=== PATIENT | male | born 1995 | race Caucasian/White ===

== ENCOUNTER 2020-11-01 09:55 | Outpatient (REF) | payer OTHER, SELFPAY ==
--- NOTE | ~2020-11-01 | XR_ITS ---
EXAMINATION: XR LUMBOSACRAL SPINE CLINICAL INFORMATION: Low back pain. COMPARISON: None TECHNIQUE: Three views of the lumbosacral spine. FINDINGS: There are 5 [id number] lumbar vertebra. There is no evidence of acute fracture, spondylolisthesis, or spondylolysis. Joint spaces maintained. Pedicles intact. There is bilateral sacroiliac joint sclerosis, left greater than right. XR/XR lumbar spine 2-3V IMPRESSION: 1. No significant lumbar spine abnormality appreciated. 2. Sclerosis with some spurring of the sacroiliac joints bilaterally. No evidence of widening or fusion of the sacroiliac joints.
== END 2020-11-01 09:56 | disposition home or self-care (01) ==
LOC: HO.HMGCX 09:55
PROVIDERS: PCP Nurse Practitioner Family; Visit Provider Nurse Practitioner Family
DX: M54.5 Low back pain (principal)
CPT/HCPCS: 72100

== ENCOUNTER 2021-03-18 14:00 | Outpatient (RCR) | payer OTHER, SELFPAY ==
--- NOTE | 2021-01-28 15:24 | MHC.PT.EP ---
[facility] [place] Office [place] Office [place] Office [address] [place] [address] [phone] F: [phone] F: [phone] F: [phone] F: [phone] Physical Therapy Plan of Care Date of Evaluation: Date of Surgery: NA Diagnosis: LBP RADIATING TO BOTH LEGS Assessment: Pt IS 25 YO M REFERRED TO PT FROM [facility] RADIATION CONTROL SPECIALIST WITH LBP RADIATING TO BOTH LEGS. Pt REPORTS SXS AT THIS TIME IN LB AND R GLUT>LE. PRESENTS WITH SXS OF SCIATICA WITH SIGNIFICANTLY TIGHT HS AND HIP EXTERNAL ROTATORS. Pt REPORTS HAS A 6 1/2 MONTH OLD BABY. XRAY SHOWS SOME ARTHRITIC CHANGES AT SI JT. ?LLD IN SUP. MMT NORMAL IN LES WITH ABILITY TO USE ABD MMS FOR SUP>SIT. Pt REPORTS HAS BEEN GOING TO CHIROPRACTER WITH SOME RELIEF. Pt ED RE BEING PARTICULARLY MINDFUL OF SXS TO TRY TO ASSESS CHIROPRACTIC VS PT INTERVENTION. SHOULD BENEFIT FROM PT TO HELP STRETCH HIP MMS, STRENGTHEN CORE AND MONITOR PELVIS SYMMETRY. Frequency and Duration: The patient will be seen 2X/WK X 4 WEEKS Short Term Goals: 1. INCREASED AWARENESS POSTURE AND BACK CARE 2. Pt TO DEMONSTRATE 2-3 TASKS WITH PROPER BODY MECH 3. 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 I HEP WITH DC EX PLAN 2. DECREASED LBP AT LEAST 50% WITH ADLS 3. INCREASED HS FLEX AT LEAST 5 DEGREES Treatment Plan: Modalities to reduce pain, spasms and effusion. Manual therapy to restore motion and function. Therapeutic exercise to improve strength and flexibility. Neuromuscular re-education for posture and balance. Therapeutic activities to return to functional activities of daily living. Electronically signed by: ROSALINA GRAY PT Please sign and return to therapist. Thank you for your referral.
--- NOTE | 2021-04-22 14:21 | MHC.PT.DC ---
[facility] [place] Office [place] Office [place] Office [address] [phone] F: [phone] F: [phone] F: [phone] F: [phone] Physical Therapy Discharge Report Diagnosis: LBP RADIATING TO BOTH LEGS Date of Surgery: NA Date of Evaluation: 01/28/21 Date of Discharge: 03/18/21 Treatments to Date: 7 Cancellations to Date: No Shows to Date: Discharge Status: Improved Function Independent with HEP Patient Elected to Stop Recommend MD Follow-up Discharge Summary: STEROID AND MM RELAXER SEEM TO HAVE MADE A DIFFERENCE IN ASSISTING Pt'S ABILITY TO PERF STRETCHES AND STRENGTHENING EXS. CONTINUES WITH R LE WEAKNESS AND DECREASED FLEXIBILITY (? DISC PROBLEM VS OTHER NEURO INVOLVEMENT..Pt ED RE WATCHING OF SXS AND CONTACTING PCP IF NEEDED). Pt WAS TO BE SEEN FOR 1 WK FU BUT WASNT ABLE TO MAKE IT. HAS HEP Electronically signed by: ROSALINA GRAY PT Please sign and return to therapist. Thank you for your referral.
== END 2021-04-22 14:22 | disposition home or self-care (01) ==
LOC: HO.PTWFD 14:00
PROVIDERS: PCP Nurse Practitioner Family; Visit Provider Nurse Practitioner Family
DX: M54.50 Low back pain, unspecified (principal)
CPT/HCPCS: 97014; 97110; 97140; 97161; 97535

== ENCOUNTER 2021-05-19 07:17 | Outpatient (REF) | payer OTHER, SELFPAY ==
--- NOTE | ~2021-05-19 | MR_ITS ---
EXAMINATION: MR LUMBAR SPINE WITHOUT CONTRAST CLINICAL INFORMATION: Low back pain. COMPARISON: None TECHNIQUE: MRI of the lumbar spine was obtained using routine sequences without contrast. FINDINGS: The lumbar vertebral bodies maintain normal heights and alignment. There is disc height loss at L5-S1 with the remainder the disc heights well preserved. No bone marrow edema is seen. The distal spinal cord appears normal. The conus medullaris terminates normally at the upper L2 level. The extraspinal soft tissues appear normal. SPINAL LEVELS: L1-L2: No posterior disc abnormality. No spinal canal or neural foraminal stenosis. L2-L3: No posterior disc abnormality. No spinal canal or neural foraminal stenosis. L3-L4: No posterior disc abnormality. No spinal canal or neural foraminal stenosis. L4-L5: No posterior disc abnormality. No spinal canal or neural foraminal stenosis. L5-S1: Disc bulging with broad-based right subarticular protrusion. Complex disc extrusion with inferior migration centered in the right subarticular zone/recess is noted with herniated disc material extending down to the lower S1 level. The overall size of the disc herniation measures up to 2.3 cm in maximal craniocaudal dimension. There is significant distortion of the right aspect of the thecal sac with compression of the traversing right S1 nerve root which is difficult to separate from the disc herniation. Right neural foramen is mildly narrowed but without foraminal nerve root compression. No left-sided narrowing. MR/MR lumbar spine wo con IMPRESSION: At L5-S1 there is complex large disc extrusion with inferior migration centered in the right subarticular zone/recess with compression of the traversing S1 nerve root. No spinal canal stenosis. No significant abnormality at the remaining lumbar levels.
== END 2021-05-19 07:18 | disposition home or self-care (01) ==
LOC: HO.MRI 07:17
PROVIDERS: PCP Nurse Practitioner Family; Visit Provider Nurse Practitioner Family
DX: M54.50 Low back pain, unspecified (principal)
CPT/HCPCS: 72148

== ENCOUNTER → 2021-06-16 08:29 | Outpatient (BNV) | payer BC, OTHER, SELFPAY | PROVIDERS: PCP Nurse Practitioner Family; Visit Provider Internal Medicine | DX: E83.110 Hereditary hemochromatosis (principal) | CPT/HCPCS: 99213; 99214 ==

== ENCOUNTER 2023-07-06 11:07 | Outpatient (AMB) | payer BC, SELFPAY ==
[2023-07-06 11:13] VITALS: BP 128/76; PULSE 86; O2SAT 98; BMI 29.0
--- NOTE | 2023-07-06 11:13 | A.OFFPC_ITS ---
Vital Signs 07/06/23 11:13 Height 5 ft 7 in Weight 185 lb 6 oz BMI 29.0 BP 128/76 Blood Pressure Location Rt brachial Position Sitting Pulse 86 Pulse Source Pulse Oximeter Pulse Oximetry (%) 98 Oxygen Delivery Method Room Air Intake Visit Reasons: phy Intake Note: Pt is here for his Annual PE Allergies No Known Allergies Allergy (Verified 07/06/23 12:06) Environmental Allergy (Unknown, Uncoded 07/06/23 12:06) Unknown Medication List - Last Reconciled 07/06/23 by ISABELLA Karimi No Known Home Meds Tobacco use date assessed: 07/06/23 Dental Screening Dental Screen Date: 07/06/23 Did you have a dental visit in the last 12 months?: Yes Did you have a dental problem in the last 6 months where you did not have access to dental care?: No Was dental information given to patient?: Patient has dentist HPI phy HPI Details Pt is here for a PE. Will order labs. Pt reports urinary frequency. Will assess CMP. Pt reports intermittent palpitations. He reports feeling anxious when these occur. Pt will let me know if these continue. [facility] Medical History (Updated 07/06/23 @ 11:26 by ISABELLA Karimi) Eczema Elevated hemoglobin Iron overload Hereditary hemochromatosis Surgical History History of surgery on right wrist Family History Father HTN (hypertension) Mother Bipolar disorder OCD (obsessive compulsive disorder) HHT (hereditary hemorrhagic telangiectasia) Maternal Grandfather HHT (hereditary hemorrhagic telangiectasia) Maternal Aunt HHT (hereditary hemorrhagic telangiectasia) Other Mental health disorder Substance use disorder Social History Household Members: Spouse and Children Housing: House Alcohol intake: current Alcohol intake frequency: a few times a week Patient Tobacco Use Status: Never used Tobacco e-Cigarette/Vaping Use: Currently Using Second Hand Smoke Exposure: Yes service: No Current occupational status: unemployed 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 90022 - PHQ-9 Billing: Patient declined-do not bill Source: Developed by Drs. Bo Brady, Gillian Shah, Angel Murray and colleagues, with an educational inna from [employer]. Thrive Questionnaire Date Thrive assessed: 07/06/23 I am a: Patient What is your living situation today?: I have a steady place to live Within the past 12 months, did the food you bought not last and you didn't have the money to get more?: Never true Within the past 12 months, did you worry whether your food would run out before you got money to buy more?: Never true Do you have trouble paying for medicines?: No Do you have trouble getting transportation to medical appointments?: No Do you have trouble paying your heating and electricity bill?: No Do you have trouble taking care of your child, family member or friend?: No Do you have trouble with day-to-day activities such as bathing, preparing meals, shopping, managing finances, etc.?: No Are you currently unemployed and looking for a job?: No Are you interested in more education?: No Currently or been in a relationship where the following occur: no concerns reported THRIVE Score: 0 AUDIT C Alcohol Use Questionnaire (AUDIT-C) 1. How often do you have a drink containing alcohol?: 2-3 times a week 2. How many drinks containing alcohol do you have on a typical day when you are drinking?: 3 or 4 3. How often do you have six or more drinks on one occasion?: Less than monthly Total Score: 5 Score Reviewed/Action Taken: Yes JUDITH-7 AMB Questionnaire JUDITH-7 Date JUDITH - 7 assessed: 07/06/23 Feeling nervous, anxious, or on edge: 0 = Not at all Not being able to stop or control worryin = Several days Worrying too much about different things: 1 = Several days Trouble relaxin = Several days Being so restless that it is hard to sit still: 1 = Several days Becoming easily annoyed or irritable: 1 = Several days Feeling afraid as if something awful might happen: 0 = Not at all Total JUDITH-7 score (0-4 normal; 5-9 mild; 10-14 moderate; 15-21 severe): 5 Source: Developed by Drs. Bo Brady, Gillian Shah, Angel Murray and colleagues, with an educational inna from [employer]. JUDITH-7 Assessment Billing JUDITH-7 Assessment Tool: JUDITH-7 Assessment 84619 Review of Systems Const Denies chills and Denies fever(s) Eyes Denies blurry vision ENT Denies vertigo, Denies dizziness and Denies sore throat Card Denies chest pain at rest, Denies chest pain with activity, Denies diaphoresis, Denies dyspnea and Denies dyspnea on exertion Resp Denies cough, Denies dyspnea, Denies dyspnea on exertion and Denies wheezing GI Denies abdominal pain, Denies melena, Denies hematochezia, Denies constipation, Denies diarrhea and Denies loose stools Denies hematuria and Reports urinary frequency Musc Denies numbness and Denies tingling Skin/Breast Denies lesions Neuro Denies vertigo, Denies dizziness, Denies numbness and Denies tingling Psych Denies anxiety, Denies depression, Denies homicidal ideation, Denies suicidal ideation and Denies other (substance abuse) Aller/Immun Denies wheezing Physical exam (Primary Care) Vital Signs: Last Vital Signs Pulse 86 07/06/23 11:13 BP 128/76 07/06/23 11:13 Pulse Ox 98 07/06/23 11:13 Oxygen Delivery Method Room Air 07/06/23 11:13 BMI result Body Mass Index 29.0 Tobacco/Smoking Status: Tobacco use Status Tobacco use date assessed 07/06/23 07/06/23 11:20 Patient Tobacco Use Status Never used Tobacco 07/06/23 11:13 e-Cigarette/Vaping Use Currently Using 07/06/23 11:20 Thrive Assessment: Date of Thrive Assessment Date Thrive assessed 10/30/20 07/06/23 11:13 Currently or been in a relationship where the following occur: no concerns reported Const General: cooperative Nutritional Appearance: well nourished Orientation/consciousness: patient oriented x3 HENMT Head: Yes normal to inspection, Yes normocephalic and Yes atraumatic Ears: TM's normal bilaterally Eyes General: appearance normal, both eyes and all related structures Alignment and Position: alignment normal and position normal Neck Neck: Yes normal visual inspection and Yes no lymphadenopathy Thyroid: Thyroid normal Resp Effort & Inspection: normal respiratory effort Auscultation: clear to auscultation bilaterally Cardio Rate: regular rate Rhythm: regular rhythm Heart sounds: S1 normal heart sound present, S2 normal heart sound present and no murmurs GI Palpation (GI): Soft to palpation and nontender Auscultation: normal bowel sounds Male General Exam: Yes normal external exam Penis: normal penis Scrotum: scrotum normal, testes descended bilaterally and no inguinal hernias Testes: no testicular mass Skin Rashes: no rashes Neuro General: patient oriented x3, moves all extremities, no focal motor deficits and deep tendon reflexes 2+ bilaterally Romberg Test: Negative Psych Appearance: grossly normal Mental Status: mental status grossly normal Speech and movement: Normal speech and movement present Affect: normal affect Attitude: cooperative Thought process: Normal thought process present Thought content: Normal thought content present Insight: Good insight present (Psych) Judgement: Good judgement present (Psych) Assessment and Plan Assessment & Plan (1) Physical exam: Code(s): Z. - Encounter for general adult medical examination without abnormal findings Plan: Labs ordered (2) Hereditary hemochromatosis: Code(s): E83.110 - Hereditary hemochromatosis Plan: iron and ferritin ordered Plan The patient agreed to the use of a ophthalmic medical technologist for this encounter. Scribed for ISABELLA Gil by Lissa Nichols ophthalmic medical technologist, on 07/06/2023 at 11:25 EST. Orders: Orders Complete Blood Count Auto Diff 11 Months . - Encounter for general adult medical examination without abnormal findings Comprehensive [place]. Panel Fast 11 Months . - Encounter for general adult medical examination without abnormal findings UA CC w/rflx Micro + Cult 11 Months . - Encounter for general adult medical examination without abnormal findings Lipid Panel 11 Months . - Encounter for general adult medical examination without abnormal findings Complete Blood Count Auto Diff Today . - Encounter for general adult medical examination without abnormal findings Comprehensive [place]. Panel Fast Today . - Encounter for general adult medical examination without abnormal findings TSH reflex Free T4 Today . - Encounter for general adult medical examination without abnormal findings UA CC w/rflx Micro + Cult Today . - Encounter for general adult medical examination without abnormal findings Lipid Panel Today Z. - Encounter for general adult medical examination without abnormal findings TSH reflex Free T4 11 Months Z00.00 - Encounter for general adult medical examination without abnormal findings Ferritin Today E83.110 - Hereditary hemochromatosis IRON PROFILE Today E83.110 - Hereditary hemochromatosis Coding Level of Care Code Est Pt Prev Care 18-39y(47044) Diagnoses Physical exam Z00.00 Hereditary hemochromatosis E83.110 Additional Codes JUDITH-7 Assessment Billing - JUDITH-7 Assessment Tool: JUDITH-7 Assessment [id number] ([id number])
== END 2023-07-06 11:41 | disposition home or self-care (01) ==
PROVIDERS: PCP Nurse Practitioner Family; Visit Provider Nurse Practitioner Family
DX: Z00.00 Encounter for general adult medical examination without abnormal findings (principal); E83.110 Hereditary hemochromatosis
CPT/HCPCS: 99395

== ENCOUNTER 2023-08-20 11:05 | Outpatient (REF) | payer BC, SELFPAY ==
[2023-08-20 13:32] LABS: MANUAL DIFF FLAG NO
[2023-08-20 13:34] LABS: Basophils Percent Auto 0.4 % (0-2); Eosinophils Absolute Auto 0.5 X10*3/uL (0.0-0.4); Eosinophils Percent Auto 6.4 % (0-4); Hematocrit 47.9 % (42.0-52.0); Hemoglobin 16.6 g/dl (14.0-18.0); Imm Gran Abs Auto 0.03 X10*3/uL (0.00-0.03); Imm Gran Pct Auto 0.4 % (0.0-0.4); Lymphocytes Absolute Auto 2.6 X10*3/uL (1.2-4.9); Lymphocytes Percent Auto 33.6 % (20-40); Mean Corpuscular HGB Conc 34.7 g/dl (31.0-36.0); Mean Corpuscular Hemoglobin 30.4 pg (27.0-33.0); Mean Corpuscular Volume 87.7 fL (80.0-98.0); Mean Platelet Volume 11.1 fL (9.4-12.4); Monocytes Absolute Auto 0.6 X10*3/uL (0.1-1.2); Monocytes Percent Auto 7.4 % (2-11); Neutrophils Percent Auto 51.8 % (45-73); Platelet Count 301 X10*3/uL (160-400); Red Blood Count 5.46 X10*6/uL (4.60-5.80); Red Cell Distribution Width 12.7 % (11.0-16.0); White Blood Count 7.7 X10*3/uL (4.8-10.8)
[2023-08-20 13:55] LABS: Alanine Aminotransferase 98 U/L (0-40); Albumin Level 4.7 g/dL (3.5-5.0); Alkaline Phosphatase 58 U/L (39-117); Anion Gap 12 (12-20); Aspartate Amino Transferase 43 U/L (5-37); Bilirubin Total 0.8 mg/dL (0.0-1.0); Blood Urea Nitrogen 12 mg/dL (9-16); Calcium 9.7 mg/dL (8.4-10.2); Carbon Dioxide 27 mmol/L (22-29); Chloride 104 mmol/L (96-108); Cholesterol 163 mg/dL (<200); Estimated Glomerular Filt Rate > 60; Glucose Fasting 84 mg/dL (60-99); HDL Cholesterol 53 mg/dL (>40); Iron 140 mcg/dL (45-160); LDL Cholesterol Calculated 91 mg/dL (<100); Percent Iron Saturation 47 % (15-50); Potassium 3.8 mmol/L (3.3-5.1); Sodium 139 mmol/L (135-145); Total Iron Binding Capacity 299 mcg/dL (228-428); Total Protein 7.4 g/dL (6.5-8.0); Triglycerides 98 mg/dL (<150); Unsaturated Iron Binding 159 ug/dL
[2023-08-20 14:13] LABS: Ferritin 337 ng/mL (20-250); TSH reflex Free T4 1.53 uIU/mL (0.32-4.0)
== END 2023-08-20 11:06 | disposition home or self-care (01) ==
LOC: HO.HMGCLDS 11:05
PROVIDERS: PCP Nurse Practitioner Family; Visit Provider Nurse Practitioner Family
DX: Z00.00 Encounter for general adult medical examination without abnormal findings (principal); Z13.6 Encounter for screening for cardiovascular disorders; E83.110 Hereditary hemochromatosis
CPT/HCPCS: 36415; 80053; 80061; 82728; 83540; 84443; 85025

== ENCOUNTER 2023-08-26 08:36 | Outpatient (REF) | payer BC, SELFPAY ==
--- NOTE | ~2023-08-26 | US_ITS ---
EXAMINATION: US ABDOMEN COMPLETE CLINICAL INFORMATION: Abnormal levels of other serum enzymes. COMPARISON: Ultrasound abdomen 09/01/2016. TECHNIQUE: Real-time imaging of the abdominal viscera. Limited visualization due to bowel gas and body habitus. FINDINGS: PANCREAS: Limited visualization of pancreatic tail and head. Imaged portion of pancreatic body is unremarkable. ABDOMINAL AORTA: Limited visualization. INFERIOR VENA CAVA: Visualized portions are normal. LIVER: Increased hepatic parenchymal heterogeneity and echogenicity could be associated with hepatocellular disease/hepatic steatosis and severely limits visualization. Correlation with liver function tests and clinical exam recommended to determine further management. GALLBLADDER: No gallstones. No gallbladder wall thickening. COMMON BILE DUCT: Normal in caliber measuring 0.3 cm in diameter. RIGHT KIDNEY: No hydronephrosis. No renal calculi. Limited visualization. The kidney measures 9.7 cm in maximum dimension. LEFT KIDNEY: No hydronephrosis. No renal calculi. Limited visualization. The kidney measures 10.3 cm in maximum dimension. SPLEEN: Normal. The spleen measures 11.9 cm in maximum dimension. FREE FLUID: None. US/US abdomen complete IMPRESSION: Increased hepatic parenchymal heterogeneity and echogenicity could be associated with hepatocellular disease/hepatic steatosis and severely limits visualization. Correlation with liver function tests and clinical exam recommended to determine further management....
== END 2023-08-26 08:37 | disposition home or self-care (01) ==
LOC: HO.HMGCX 08:36
PROVIDERS: PCP Nurse Practitioner Family; Visit Provider Nurse Practitioner Family
DX: R74.8 Abnormal levels of other serum enzymes (principal)
CPT/HCPCS: 76700

== ENCOUNTER 2023-10-18 12:44 | Outpatient (REF) | payer BC, SELFPAY | END 2023-10-18 12:45 | disposition home or self-care (01) | LOC: HO.BBR 12:44 | PROVIDERS: PCP Nurse Practitioner Family; Visit Provider Internal Medicine | DX: Z13.89 Encounter for screening for other disorder (principal) ==

== ENCOUNTER 2023-11-22 12:36 | Outpatient (REF) | payer BC, SELFPAY | END 2023-11-22 12:37 | disposition home or self-care (01) | LOC: HO.BBR 12:36 | PROVIDERS: PCP Nurse Practitioner Family; Visit Provider Internal Medicine | DX: Z13.89 Encounter for screening for other disorder (principal) ==

== ENCOUNTER 2024-02-10 13:04 | Outpatient (REF) | payer BC, SELFPAY | END 2024-02-10 13:05 | disposition home or self-care (01) | LOC: HO.BBR 13:04 | PROVIDERS: PCP Nurse Practitioner Family; Visit Provider Internal Medicine | DX: Z13.89 Encounter for screening for other disorder (principal) ==

== ENCOUNTER 2024-03-13 14:06 | Outpatient (REF) | payer BC, SELFPAY | END 2024-03-13 14:07 | disposition home or self-care (01) | LOC: HO.BBR 14:06 | PROVIDERS: PCP Nurse Practitioner Family; Visit Provider Internal Medicine | DX: Z13.89 Encounter for screening for other disorder (principal) ==

== ENCOUNTER → 2024-05-31 16:03 | Outpatient (BNVA) | payer BC, SELFPAY | PROVIDERS: PCP Nurse Practitioner Family; Visit Provider Nurse Practitioner Family | DX: Z23 Encounter for immunization (principal) | CPT/HCPCS: 90471; 90715 ==

== ENCOUNTER 2024-05-31 16:14 | Outpatient (AMB) | payer BC, SELFPAY ==
--- NOTE | 2024-05-31 16:11 | AM.OFFVISNUR ---
Intake Visit Reasons: Tdap Allergies No Known Allergies Allergy (Verified 03/21/24 15:17) Environmental Allergy (Mild, Uncoded 03/21/24 15:17) Cough Immunizations Boostrix Tdap 2.5 Lf unit-8 mcg-5 Lf/0.5 mL intramuscular syringe Performing Provider: ISABELLA Karimi Performing Location: [facility] Administered by: ROSALIA Bell on 05/31/24 16:16 Dose Route Admin Location Dispensed Lot Number Expiration Date ND Frame Aligner 0.5 mL IM Left Deltoid 0.5 mL [id number] 05/30/26 [id number] Node1 VIS Given Date VIS Provided VIS Publication Date 05/31/24 Single Vaccine 20 Eligibility Eligibility Date Funding Source Not [facility] Eligible 05/31/24 Private Assessment & Plan Assessment & Plan Orders: Orders TDaP Immunization Today Z23 - Encounter for immunization Medications: New Boostrix Tdap (diphth,pertus(acell),tetanus) 0.5 mL IM ONCE 0.5 mL 0RF NS Z23 - Encounter for immunization
== END 2024-05-31 16:18 | disposition home or self-care (01) ==
PROVIDERS: PCP Nurse Practitioner Family; Visit Provider Nurse Practitioner Family
DX: Z23 Encounter for immunization (principal)

== ENCOUNTER 2024-07-25 11:00 | Outpatient (AMB) | payer BC, SELFPAY ==
[2024-07-25 11:07] VITALS: BP 120/80; PULSE 90; TEMP 36.6; O2SAT 96; BMI 29.3
--- NOTE | 2024-07-25 11:07 | A.OFFPC_ITS ---
Vital Signs 07/25/24 11:07 Height 5 ft 7 in Weight 187 lb 2 oz BMI 29.3 BP 120/80 Blood Pressure Location Lt brachial Position Sitting Pulse 90 Pulse Source Pulse Oximeter Temp 97.8 F Temp Source Oral Pulse Oximetry (%) 96 Intake Visit Reasons: ANNUAL PE Intake Note: pt is here for annual exam Bottle Tester Required: No Accompanied by: Self / Same As Patient Allergies No Known Allergies Allergy (Verified 07/25/24 11:42) Environmental Allergy (Mild, Uncoded 07/25/24 11:42) Cough Medication List - Last Reconciled 07/25/24 by HOME Karimi No Known Home Meds Tobacco use date assessed: 07/25/24 Dental Screening Dental Screen Date: 07/25/24 Did you have a dental visit in the last 12 months?: Yes Did you have a dental problem in the last 6 months where you did not have access to dental care?: No Was dental information given to patient?: Patient has dentist HPI ANNUAL PE HPI Details History of Present Illness The patient is a 28-year-old male presenting for a physical exam with a reported complaint of urinary frequency. He describes this as an increase in the need to urinate, but he can fully empty his bladder each time. This condition is presumed by the patient to be linked to his high fluid intake. Importantly, he denies any nocturia, excessive dribbling post-urination, or any decrease in stream strength. educated on limiting caffeine intake. The patient also denies any gastrointestinal symptoms such as abdominal pain, altered bowel movements, or hematochezia and has no respiratory or cardiovascular complaints. Hx of , follows up with hematology Health Maintenance - Fasting labs recommended for future as sessment Social History Review of Systems - Genitourinary: Reports urinary frequen cy; Denies post-void dribbling or weak stream - Gastrointestinal: Denies abdominal juancarlos n, blood in stool, constipation, diarrhea - Cardiovascular: Denies chest pain - Respiratory: Denies shortness of breat h - Psychological: Denies anxiety, depress ion, suicidal ideation, homicidal ideation Physical Exam General: Cooperative, healthy appearing, comfortable, no acute distress and well developed Orientation: Patient oriented x3 Limitations: No limitations Head: Normal to inspection Ears: Hearing grossly normal bilaterally Nose: Normal external nose present Face and sinus: Normal facial exam Eyes: Appearance normal, both eyes and all related structures Neck: Normal visual inspection and Yes full ROM Respiratory: Normal respiratory effort and able to speak in complete sentences. Clear to auscultation bilaterally Cardiovascular: Regular rate and rhythm. Normal S1 and S2 GI: Normal to inspection. Soft to palpation and nontender Skin: No rashes or lesions noted Neuro: Patient oriented x3 Extremities: Normal to inspection Results Plan The plan for urinary frequency involves advising the patient to track his fluid intake and assessing any related changes in urinary habits. Future fasting labs are recommended to rule out underlying metabolic or renal contributors. As the symptom is associated with high fluid intake, no immediate intervention is required at this time. Discussion Notes I explained to the patient that the urinary frequency he is experiencing could be attributed to his high fluid intake. We discussed the importance of monitoring his symptoms and the potential necessity for fasting labs in the future to confirm any underlying issues. The risks and benefits of testing were covered, and the patient was advised to return if symptoms worsen or new concerns arise. Patient Instructions - Monitor fluid intake and note any tanner ges in urinary frequency. - Plan to have fasting labs done in the future for further evaluation. - Seek medical attention if symptoms per sist or worsen, or if additional symptoms develop. [facility] Medical History Eczema Elevated hemoglobin Iron overload Hereditary hemochromatosis Surgical History History of surgery on right wrist Family History Father HTN (hypertension) Mother Bipolar disorder OCD (obsessive compulsive disorder) HHT (hereditary hemorrhagic telangiectasia) Maternal Grandfather HHT (hereditary hemorrhagic telangiectasia) Maternal Aunt HHT (hereditary hemorrhagic telangiectasia) Other Mental health disorder Substance use disorder Social History Household Members: Spouse and Children Housing: House Alcohol intake: current Alcohol intake frequency: a few times a week Patient Tobacco Use Status: Never used Tobacco e-Cigarette/Vaping Use: Currently Using Second Hand Smoke Exposure: Yes service: No Current occupational status: unemployed 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 1. Little interest or pleasure in doing things: not at all 2. Feeling down, depressed, or hopeless: not at all 3. Trouble falling or staying asleep, or sleeping too much: more than half the days 4. Feeling tired or having little energy: several days 5. Poor appetite or overeating: not at all 6. Feeling bad about yourself - or that you are a failure or have let yourself or your family down: not at all 7. Trouble concentrating on things, such as reading the newspaper or watching television: not at all 8. Moving or speaking so slowly that other people could have noticed. Or the opposite - being so fidgety or restless that you have been moving around a lot more than usual: not at all 9. Thoughts that you would be better off or of hurting yourself in some way: not at all Total score: 3 Depression Screening Interpretation: Negative Depression Screening Done: Yes 81344 - PHQ-9 Billing: Yes Source: Developed by Drs. Bo Brady, Gillian Shah, Angel Murray and colleagues, with an educational inna from [employer]. Thrive Questionnaire Date Thrive assessed: 07/25/24 I am a: Patient What is your living situation today?: I have a steady place to live Within the past 12 months, did the food you bought not last and you didn't have the money to get more?: Never true Within the past 12 months, did you worry whether your food would run out before you got money to buy more?: Never true Do you have trouble paying for medicines?: No Do you have trouble getting transportation to medical appointments?: No Do you have trouble paying your heating and electricity bill?: No Do you have trouble taking care of your child, family member or friend?: No Do you have trouble with day-to-day activities such as bathing, preparing meals, shopping, managing finances, etc.?: No Are you currently unemployed and looking for a job?: No Are you interested in more education?: Yes Please select the resources that you would like help with: None Currently or been in a relationship where the following occur: No concerns reported THRIVE Score: 0 AUDIT C Alcohol Use Questionnaire (AUDIT-C) 1. How often do you have a drink containing alcohol?: Monthly or less 2. How many drinks containing alcohol do you have on a typical day when you are drinking?: 3 or 4 3. How often do you have six or more drinks on one occasion?: Less than monthly Total Score: 3 Score Reviewed/Action Taken: Yes JUDITH-7 AMB Questionnaire JUDITH-7 Date JUDITH - 7 assessed: 07/25/24 Feeling nervous, anxious, or on edge: 1 = Several days Not being able to stop or control worryin = Several days Worrying too much about different things: 0 = Not at all Trouble relaxin = Several days Being so restless that it is hard to sit still: 1 = Several days Becoming easily annoyed or irritable: 1 = Several days Feeling afraid as if something awful might happen: 0 = Not at all Total JUDITH-7 score (0-4 normal; 5-9 mild; 10-14 moderate; 15-21 severe): 5 Source: Developed by Drs. Bo Brady, Gillian Shah, Angel Murray and colleagues, with an educational inna from [employer]. JUDITH-7 Assessment Billing JUDITH-7 Assessment Tool: JUDITH-7 Assessment 67761 Physical exam (Primary Care) Vital Signs: Last Vital Signs Temp 97.8 F 07/25/24 11:07 Pulse 90 07/25/24 11:07 BP 120/80 07/25/24 11:07 Pulse Ox 96 07/25/24 11:07 BMI result Body Mass Index 29.3 Tobacco/Smoking Status: Tobacco use Status Tobacco use date assessed 07/25/24 07/25/24 11:11 Patient Tobacco Use Status Never used Tobacco 07/25/24 11:11 e-Cigarette/Vaping Use Currently Using 07/25/24 11:11 PHQ-9: PHQ-9 Score PHQ-9: Total score 3 07/25/24 11:11 Depression Screening Interpretation: Negative Thrive Assessment: Date of Thrive Assessment Date Thrive assessed 07/25/24 07/25/24 11:11 Currently or been in a relationship where the following occur: No concerns reported Coding Level of Care Code Est Pt Prev Care 18-39y(65048) Diagnoses Physical exam Z00.00 Hereditary hemochromatosis E83.110 Iron overload E83.19 Additional Codes JUDITH-7 Assessment Billing - JUDITH-7 Assessment Tool: JUDITH-7 Assessment 76925 ([id number]) PHQ-9 - 38189 - PHQ-9 Billing: Yes ([id number]) Assessment & Plan Assessment & Plan (1) Physical exam: Code(s): Z00.00 - Encounter for general adult medical examination without abnormal findings Category: Medical (2) Hereditary hemochromatosis: Code(s): E83.110 - Hereditary hemochromatosis Category: Medical (3) Iron overload: Code(s): E83.19 - Other disorders of iron metabolism Category: Medical Plan . Orders: Orders Complete Blood Count Auto Diff Today Z00.00 - Encounter for general adult medical examination without abnormal findings Comprehensive [place]. Panel Fast Today Z00.00 - Encounter for general adult medical examination without abnormal findings TSH reflex Free T4 Today Z00.00 - Encounter for general adult medical examination without abnormal findings UA CC w/rflx Micro + Cult Today Z00.00 - Encounter for general adult medical examination without abnormal findings Lipid Panel Today Z00.00 - Encounter for general adult medical examination without abnormal findings
--- OUTSIDE RECORDS SUMMARY | 2024-07-25 13:17 | XMS_ITS | Clinical Summary ---
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 Name Role Phone Unavailable Primary Care Provider Unavailabl e Social History Tobacco Use Types Packs/Day Years Used Date Smoking Tobacco: Never Assessed Sex and Gender Information Value Date Recorded Sex Assigned at Not on file Legal Sex Male 4:08 PM EDT Gender Identity Not on file Sexual Orientation Not on file Plan of Treatment Health Maintenance Due Date Last Done Comments Depression: Screening Annual ly using PHQ-2/9 in Adults 18 yrs or above (or HM Modifier)([facility]) 10/11/2013 Hepatitis C Virus Infection in Adolescents and Adults: Screening (or Modifier) ([facility]) 10/11/2013 SDOH Screening Reminder: Shanelle ually for all adults ([facility]) 10/11/2013 Tobacco Smoking Cessation: i n Adults excluding Women: Behavioral and Pharmacotherapy Interventions ([facility]) 10/11/2013 DTaP/Tdap/Td Vaccines ([facility]) (1 - Tdap) 10/11/2014 Lipid Screening: Once for Me n aged 20 to 35 yrs ([facility]) 2015 Flu Vaccination: Yearly for ages 18mos through 64 years (or Modifier)([facility]) 12/08/2023 COVID-19 Vaccine Screening: Initial Series and Booster Status ([facility]) ( - 2023- season) 2024 Zoster/Shingles Vaccine Seri es Screening: Adults aged 18+ yrs (or HM Modifiers)([facility]) (1 of 2) 10/11/2045 Pneumococcal Vaccination Scr eening: Pts 0-19 & 19-64 yrs of age ([facility]) Aged Out No longer eligible based on patient's age to complete this topic Medical Devices Not on file Insurance [facility] [address] [place] [id number]
== END 2024-07-25 11:52 | disposition home or self-care (01) ==
LOC: HO.HMCC 11:01
PROVIDERS: PCP Nurse Practitioner Family; Visit Provider Nurse Practitioner Family
DX: Z00.00 Encounter for general adult medical examination without abnormal findings (principal); E83.110 Hereditary hemochromatosis; E83.19 Other disorders of iron metabolism

== ENCOUNTER → 2024-07-25 11:00 | Outpatient (BNVA) | payer BC, SELFPAY | PROVIDERS: PCP Nurse Practitioner Family; Visit Provider Nurse Practitioner Family | DX: Z00.00 Encounter for general adult medical examination without abnormal findings (principal); E83.110 Hereditary hemochromatosis | CPT/HCPCS: 96127 ==